=== PATIENT | male | born 2000 | race Caucasian/White ===

== ENCOUNTER 2023-01-28 18:03 | Emergency (ER) | payer OTHER ==
[~2023-01-28] VITALS: Ht 177.8 cm; Wt 104.3 kg
[2023-01-28 18:25] VITALS: O2SAT 100
[2023-01-28] MEDS ORDERED: CORTISPORIN-TC10 M1 RIGHT EAR (18:41)
== END 2023-01-28 18:47 | disposition home or self-care (01) ==
LOC: ER 18:26
DX: H60.91 Unspecified otitis externa, right ear (principal)
CPT/HCPCS: 99282